=== PATIENT | female | born 1965 | race Caucasian/White ===

== ENCOUNTER 2017-10-15 10:26 | Day surgery (SDC) | payer BC ==
--- NOTE | 2017-10-15 03:35 | HP ---
CC: Marilee Lambert MD HISTORY AND PHYSICAL: DATE OF PLANNED ADMISSION AND SURGERY: 10/15/17 HISTORY OF PRESENT ILLNESS: Ms. Martinez is a 52-year-old white female who is admitted with a left renal calculus for cystoscopy and placement of left ureteral stent. Ms. Martinez' symptoms started about 2 weeks ago when she developed mild left flank pain. There were episodes of gross hematuria. The pain has been intermittent, and severe at times, requiring ibuprofen for partial pain control. She had a work-up with a renal ultrasound and a KUB, which both showed a 1 cm partially obstructing calculus at the level of the ureteropelvic junction. There were also 2 smaller left renal calculi measuring about 5 mm each. Because of the intermittent episodes of pain and size of the stone, the patient is admitted for placement of left ureteral stent in preparation for definitive treatment of the stone with shock wave lithotripsy. PAST MEDICAL HISTORY AND SYSTEM REVIEW: She is very healthy. She has environmental allergies for which she takes Singulair and Zyrtec as needed. She is otherwise in excellent health. She reports having intolerance to hydrocodone. She gives past history of urinary tract infections. PHYSICAL EXAMINATION GENERAL: Pleasant and healthy looking white female, who is in mild to moderate pain. VITAL SIGNS: Blood pressure 120/80, pulse of 70, temperature 98. LUNGS: Clear. HEART: Regular and rhythmic. No murmurs. ABDOMEN: Soft. No masses. No tenderness. There is mild left CVA tenderness. LABORATORY DATA: Urinalysis in the office showed +3 blood, +1 protein, negative esterase, and nitrite. IMPRESSION: Recurrent episodes of left flank pain and gross hematuria secondary to a 1 cm calculus at the left ureteropelvic junction causing intermittent obstruction. PLAN: Cystoscopy and placement of left ureteral stent. The patient will be admitted at a later date for shock wave lithotripsy and removal of the left ureteral stent. I discussed the above plans in detail with the patient and all of her questions were answered. [id number]/[facility] #: [id number] [facility]
[~2017-10-15 10:26] MED LIST: Buffered Lidocaine 0.9% SYRIN* 5 ML/SYR SYRINGE INTRADERM ONE; Buffered Lidocaine 0.9% SYRIN* 5 ML/SYR SYRINGE ONE; Famotidine TAB* 20 MG PO ONE; Ondansetron INJ* 2 MG/ML VIAL ONE; cefTRIAXone(*) 1 GM ADVAN/BAG ONE
[2017-10-15] MEDS ORDERED: Scopolamine 1.5 mg* PATCH TRANSDERM PRN (10:36)
[2017-10-15] MEDS ORDERED: Naloxone* 0.4 MG/ML 1 ML VIAL IV PRN (10:36)
[2017-10-15] MEDS ORDERED: oxyCODONE/Acetamin 5/325 MG* TAB PO PRN (10:36)
[2017-10-15] MEDS ORDERED: fentaNYL* 50 MCG/ML 2 ML VIAL (100 MCG VIAL) IV PRN (10:36)
[2017-10-15] MEDS ORDERED: PROCHLORPERAZINE INJ 5 MG/ML 2 ML VIAL IV PRN (10:36)
[2017-10-15] MEDS ORDERED: DiMENhydriNATE IV* 50 MG/ML VIAL IV PUSH PRN (10:36)
[2017-10-15] MEDS ORDERED: Morphine INJ* 2 MG/ML 1 ML CARPUJECT IV PRN (10:36)
[2017-10-15] MEDS ORDERED: Morphine INJ* 10 MG/ML 1 ML CARPUJECT ONE (11:36)
[2017-10-15] MEDS ORDERED: Famotidine TAB* 20 MG ONE (11:50)
[2017-10-15] MEDS ORDERED: fentaNYL* 50 MCG/ML 2 ML VIAL (100 MCG VIAL) ONE (12:13)
[2017-10-15] MEDS ORDERED: Midazolam* 1 MG/ML 5 ML VIAL (5 MG) ONE (12:13)
[2017-10-15] MEDS ORDERED: Dexamethasone IV* 4 MG/ML 1 ML (4 MG) ONE (12:40)
[2017-10-15] MEDS ORDERED: Propofol* 10 MG/ML 20 ML BTL IV PUSH ONE (12:40)
[2017-10-15] MEDS ORDERED: Lidocaine 2% PF * 5 ML VIAL ONE (13:17)
--- NOTE | 2017-10-15 13:42 | RAD ---
INDICATION: Left ureteral calculus, stent placement. COMPARISON: Comparison is made with a prior KUB study from October 10, 2017. TECHNIQUE: 6 seconds of intermittent fluoroscopic guidance were provided and 3 spot films of the abdomen were centered on the left side. FINDINGS: There is partial opacification of the left renal collecting system. Subsequently there is placement of a double-J stent catheter on the left side. IMPRESSION: INTRAOPERATIVE CONTROL FILMS. CPT II Codes: G9500
[2017-10-15 14:04] VITALS: BP 142/113
--- NOTE | 2017-10-15 23:17 | OP ---
CC: Dr. Marilee Lambert OPERATIVE REPORT: DATE OF OPERATION: 10/15/17 DATE OF : 69 SURGEON: Jus Rice MD ANESTHESIOLOGIST: Dr. Delmar Torres. ANESTHESIA: General. PRE-OP DIAGNOSIS: Left UPJ calculus (1 cm) Recurrent Lt renal coloc due to above. POST-OP DIAGNOSIS: Distal left ureteral calculus (1 cm). OPERATIVE PROCEDURE: 1. Cystoscopy. 2. Left ureteroscopy, laser lithotripsy and extraction of left ureteral calculus. 3. Left retrograde pyelography and placement of left ureteral stent (6-East Timorese). INDICATION FOR PROCEDURE: Ms. Martinez is a 52-year-old lady, who started having recurrent episodes of left flank pain and gross hematuria about 1 week ago. Her workup with KUB, and renal ultrasound yesterday, showed 1 cm radio- opaque calculus at the left ureteropelvic junction associated with mild to moderate hydronephrosis. Over last 24 h patient has been having recurrent episodes of acute Lt flank pain. Because of the recurrent episodes of pain, the size of the calculus and its location, the patient is brought in for left ureteral stent placement in preparation for definitive treatment of the stone. PATHOLOGY: At fluoroscopy, the calculus was not seen in the area of the left kidney, but was seen overlying the bony pelvis at the junction of the middle and distal thirds of the ureter about 6 cm above the ureterovesical junction. At cystoscopy, the bladder mucosa looked normal. There were no suspicious bladder lesions seen. The ureteral orifices looked normal. At left ureteroscopy, a 1 cm calculus was noted about 5 or 6 cm above the level of the ureterovesical junction. The calculus was light grayish in color and consistent in appearance with a calcium phosphate stone. It fragmented easily with the laser. Left retrograde pyelography showed moderate dilatation of the ureter and minimal dilatation of the collecting system. DESCRIPTION OF PROCEDURE: After successful general anesthesia, the patient was placed in the lithotomy position and was prepped and draped for a cystoscopy. Cystoscopy was performed. The bladder was carefully inspected and the above findings were noted. A flexible-tip guidewire was then introduced into the left orifice and positioned in the area of the renal pelvis. At fluoroscopy, the calculus could not be seen in the area of the left kidney or the proximal ureter and was noted overlying the lower part of the bony pelvis adjacent to the guidewire indicating that the stone had dropped into the distal ureter since she was seen in the office yesterday afternoon. Decision was made to proceed with ureteroscopy. A size 6.5 semi-rigid ureteroscope was then passed inside the bladder. A flexible tipped basket was then introduced through the port of the ureteroscope and the flexible tip was introduced into the left ureter alongside the guidewire. That allowed the atraumatic introduction of the ureteroscope inside the ureter. The calculus was visualized. The basket was passed beyond the stone and was deployed to prevent proximal migration of the stone. A size 550 micron laser fiber was then introduced through the other port of the ureteroscope and the stone was fragmented into multiple pieces using laser under direct vision. The stone fragments were then extracted using the basket. After several passes, all the stone fragments were removed. Final inspection showed intact ureteral wall without any damage or perforation. Retrograde pyelography was then performed. A size 6-[place]orese stent was then placed with the proximal end coiling in the renal pelvis and the distal end coiling inside the bladder. There was good drainage of contrast from both kidney and no extravasation. Patient the procedure well, and left the OR in good condition. The plan is to leave the stent in place for 7 to 10 days. It will be removed in the office under local anesthesia. [id number]/[facility] #: [id number] [facility]ERE[facility]
[2017-10-18] MEDS ORDERED: Scopolamine PATCH Remove* 1 NOTE MISC PATCH OFF ONE (10:38)
== END 2017-10-15 14:37 | disposition home or self-care (01) ==
LOC: OR 10:26
PROVIDERS: ATTEND Urology
DX: N13.2 Hydronephrosis with renal and ureteral calculous obstruction (principal); R31.0 Gross hematuria
CPT/HCPCS: 74420; 81025; 82365; 88300; A9270-GY; C1876; J0696; J1100; J2250; J2270; J2704; J3010

== ENCOUNTER 2018-06-22 22:15 | Emergency (ER) | payer BC ==
--- OUTSIDE RECORDS SUMMARY | 2018-06-22 22:25 | XMS REPORT | Continuity of Care Document ---
:1965 External Reference #:[id number] Author Name Rach Blandon Care Team Providers Name Role Phone Marilee Pineda MD Primary Care Physician Unavailable Payers Type Date Identification Numbers Payment Provider Subscriber Policy Number: [id number] [employer] Micaela Martinez PayID: [id number] [address] [address] [place] [address] Advance Directives Description No Information Available Problems Description No Information Family History Date Family Member(s) Problem(s) Comments Father Parkinson's Disease Onset: (age 40 Years) Mother Breast Cancer Mother due to Breast Cancer () Social History Type Date Description Comments Sex Unknown Marital Status Single 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 With 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 ETOH Use Occasionally consumes alcohol Tobacco Use Start: Unknown Patient has never smoked Recreational Drug Use Denies Drug Use Smoking Status Reviewed: 06/15/18 Patient has never smoked Exercise Type/Frequency Exercises regularly Allergies, Adverse Reactions, Alerts Date Description Reaction Status Severity Comments 06/15/2018 Hydrocodone Active rash Medications Medication Date Status Form Strength Qnty SIG Indications Ordering Provider Bupropion HCL ER 00/ Active Tablets ER 150mg 1 by mouth Unknown (XL) 0000 24HR every day Levocetirizine 00// Active Tablets 5mg 1 by mouth Unknown Dihydrochloride 0000 every day Montelukast 00/00/ Active Tablets 10mg 1 by mouth Unknown Sodium 0000 every day Xopenex HFA 00// Active Aerosol 45mcg/Act 2 puffs Unknown 0000 inhaled every 4-6h as needed for shortness of breath. Vitamin D High 00// Active Capsules 1 by mouth Unknown Potency 0000 every day Evening [place] / Active Capsules 500mg 1 capsule Unknown Oil 0000 daily Immunizations Description No Information Available Vital Signs Date Vital Result Comment 06/15/2018 10:42am Height 60 inches 5'0" Weight 135.00 lb Heart Rate 66 /min BP Systolic Sitting 118 mmHg BP Diastolic Sitting 78 mmHg Respiratory Rate 16 /min Body Temperature 98.8 F BMI (Body Mass Index) 26.4 kg/m2 Results Description No Information Available Procedures Description No Information Available Encounters Description No Information Available Plan of Treatment No Information Available
--- OUTSIDE RECORDS SUMMARY | 2018-06-22 22:25 | XMS REPORT | Continuity of Care Document ---
:1965 Author Organization [facility] Address [address] [place] [address], [place] [id number] Phone Care Team Providers Name Role Phone Louisa Shields NP Unavailable Unavailable Allergies, Adverse Reactions, Alerts Substance Reaction Status hydrocodone Active Medications Medication Instructions Dosage Effective Dates Status Comments (start - stop) fluconazole 150 mg 1 po x 1 for - Active tablet fungal infection (#1) Mirena 20 mcg/24 Insert IU - Active hr (5 years) intrauterine device PENICILLIN V Not Available - Active POTASSIUM (unknown strength) XOPENEX (unknown Not Available - Active strength) SINGULAIR (unknown Not Available - Active strength) WELLBUTRIN take 1 tablet by Not Available - Active (unknown strength) oral route 2 times every day ZYRTEC (unknown Not Available - Active strength) ESTRACE (unknown Not Available - No Longer strength) Active Problems Condition Effective Dates (start - Clinical Status Comments stop) Body mass index (BMI) 25.0-25.9, adult Candidiasis of vulva and vagina Unspecified menopausal and perimenopausal disorder 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 Other Wearing Apparel Shaker.Svc. STI FLUCONAZOLE 150 MG #1 Results Test Name Date and Time Measure Units Reference Range Abnormal Flag Status Comments Panel Description: Wet Mount Final Wet Mount 19:07:35 Hyphae/Lavonne: yesBudding yeast: Final yesTrich: noClue cells: noWBCs: noAmine/Whiff test: negativepH: 4.0 Advance Directives Directive Yes / No Effective Date File Name No information Encounters Encounter Practice Location Reason(s) Diagnoses Date Provider Providers Description For Visit Copied on Encounter OFFICE/OUTPA [facility] Well Body mass index Alysno Referring TIENT VISIT, [facility] [place] Person (BMI) 25.0-25.9, 7-201 [place]. 620 Provider: [facility] Visit adultCandidiasis [address], [place] (chief of vulva and [place], [place], Aly[facility], 620 complaint) vaginaUnspecifie [id number], [place]. [address] menopausal and tel:[phone], [address], [place], perimenopausal [address] [place], [place], [place], [address]. [id number], tel:[phone] [place] [phone] tel:[phone] [facility] Encntr for tool analyst Apr-0 [facility] [place] exam (general) 5-201 [place]. [address] (routine) w/o [address], [place] abn [place], [place], [facility], [address] findingsEncntr [id number] screen for tel:[phone] St, [place], [place] [address] [place], sexl mode of [id number], transmiss [place] tel:[phone] [facility] Encounter for Mar-2 [facility] [place] test, 8-201 Priscila. [address] result [address], [place] negativeEncounte [place], [place], [facility], [address] [place] [id number]. [address] intrauterine tel:[phone] St, [place], contraceptive [address] [place], deviceEncounter [id number], for insertion of [place] intrauterine tel:[phone] contraceptive [phone] deviceAcute vaginitis [facility] [place] [address]. [address] [facility] [address], [place], [place], [facility], [address] [id number] tel:+[phone] , [place], [address] [place], [id number], [place] tel:[phone] [facility] [place] [facility] [address]. [address] [facility] [address], [place], [place], [facility], [address] [address] tel:+[phone] , [place], [address] [place], [id number], [place] tel:[phone] Family History Family Member Diagnosis Age At Onset Father Heart disease Mother Blood clots, legs 1st degree relative No hx of coronary heart disease (female <65, male <55) Mother Cancer, breast Maternal grandfather Myocardial infarction Mother Thyroid disorder Paternal grandfather Myocardial infarction 1st degree relative Cancer of breast, colon, endometrium or ovary 1st degree relative Venous thromboembolism Maternal grandmother Stroke Immunizations Vaccine Date Status Comments Hep A and Hep B administered Note: PER HEALTH HX 07/2011 ; Source: Source Unspecified measles, mumps and rubella administered Note: PER HEALTH HX 2011 ; virus vaccine Source: Source Unspecified Payers Payer name Insurance type Covered republican ID Authorization(s) [facility] [id number] Social History Type Description Quantity Date Captured Comments Alcohol Use Details Unknown Caffeine Use Details Unknown Tobacco Use Status Never smoked tobacco Smoking Status Never smoker Non-Smoking Tobacco : No Details Available : No Details Available 2018 Use Details Sex Female Vital Signs Date / Height Weight BMI Pulse Blood Temperature Respiratory Body Head BMI Pulse Inhaled Time: Rate Pressure Rate Surface Circumference percentile Ox Ox Area 61.00 136.40 25.7 102/80 -2019 in lbs 7 mm[Hg] 6:01 kg/m PM eter (2) Chief Complaint And Reason For Visit Most recent encounter only, dated '06/19/2018 17:40'. Well Person Visit ( chief complaint) Reason For Referral Reason For Referral No information Plan Of Treatment Date Type Action Status No information History Of Present Illness Encounter Date Complaint History Of Present Illness No information Functional Status Date Functional Assessment No information Medications Administered Medication Instructions Dosage Effective Dates (start - stop) Status Comments No information Instructions Date Instruction Additional Information No information Assessments Type Assessment Date assessment Body mass index (BMI) 25.0-25.9, adult assessment Candidiasis of vulva and vagina assessment Unspecified menopausal and perimenopausal disorder Goals Health Concern Goal Type Priority Status Date No information Medical Equipment Description Device [place] Device Identifier Effective Dates (start - stop ) Status No information Mental Status Date Cognitive Assessment Normal Orientation Health Concerns Observation Date No information Concern Status Date No information
[2018-06-22] MEDS ORDERED: Morphine VIAL* 4 MG/ML VIAL (1 ml vial) IV ONE (22:30)
[2018-06-22] MEDS ORDERED: Ondansetron INJ* 2 MG/ML VIAL IV ONE (22:30)
[2018-06-22] MEDS ORDERED: NS 0.9% 1000 ML* 1,000 ML IV ONE ×2 (22:30→23:22)
[2018-06-22] MEDS ORDERED: Ketorolac INJ* 30 MG/ML 1 ML VIAL IV PUSH ONE (22:30)
--- NOTE | 2018-06-22 22:37 | ED ---
GI/ HPI - HPI Summary HPI Summary: 52-year-old female presents abdominal pain today. She states it radiates to right flank. She states she has history kidney stones that it feels similar. She has history of hyperparathyroidism and hypercalcemia. She admits to nausea and vomiting. Denies any fevers. She denies any urinary symptoms. She states she has not had a bowel movement in a couple days. She denies any diarrhea. She tried some hyromorphine for her pain with no relief. no chest pain or SOB. - History of Current Complaint Chief Complaint: EDFlankPain Time Seen by Provider: 06/22/18 22:26 Stated Complaint: ABD PAIN Hx Last Menstrual Period: DOESN'T GET-IUD Pain Intensity: 9 - Allergy/Home Medications Allergies/Adverse Reactions: Allergies Allergy/AdvReac Type Severity Reaction Status Date / Time hydrocodone Allergy Severe Rash And Verified 06/23/18 01:32 Itching PMH/Surg Hx/FS Hx/Imm Hx Endocrine/Hematology History: Denies: Hx Anticoagulant Therapy Respiratory History: Reports: Hx Asthma - Surgical History Surgery Procedure, Year, and Place: RIGHT BREAST LUMPECTOMY, BREAST REDUCTION SURGERY Infectious Disease History: No Infectious Disease History: Denies: Traveled Outside the [place] in Last 30 Days - Family History Known Family History: Positive: Hypertension - Social History Alcohol Use: Occasionally Substance Use Type: Reports: None Smoking Status (MU): Never Smoked Tobacco Review of Systems Negative: Fever Negative: Chest Pain Negative: Shortness Of Breath Positive: Abdominal Pain, Vomiting, Nausea. Negative: Diarrhea Positive: flank pain. Negative: dysuria All Other Systems Reviewed And Are Negative: Yes Physical Exam Triage Information Reviewed: Yes Vital Signs On Initial Exam: Initial Vitals Temp Pulse Resp BP Pulse Ox 98.2 F 81 18 125/63 99 06/22/18 22:17 06/22/18 22:17 06/22/18 22:17 06/22/18 22:17 06/22/18 22:17 Vital Signs Reviewed: Yes Appearance: Positive: Well-Appearing Skin: Positive: Warm, Dry Head/Face: Positive: Normal Head/Face Inspection Eyes: Positive: Normal, Conjunctiva Clear ENT: Positive: Pharynx normal Respiratory/Lung Sounds: Positive: Clear to Auscultation, Breath Sounds Present Cardiovascular: Positive: Normal, RRR Abdomen Description: Positive: Soft, CVA Tenderness (R), Other: - tenderness right side abd Bowel Sounds: Positive: Present Musculoskeletal: Positive: Normal Neurological: Positive: Normal Psychiatric: Positive: Normal Diagnostics - Vital Signs Vital Signs Temp Pulse Resp BP Pulse Ox 06/22/18 22:17 98.2 F 81 18 125/63 99 - Laboratory Result Diagrams: 06/22/18 22:53 06/22/18 22:53 Lab Statement: Any lab studies that have been ordered have been reviewed, and results considered in the medical decision making process. - CT abd CT Interpretation Completed By: Radiologist Summary of CT Findings: IMPRESSION: 1. Distal right ureteral calculus approximately 5 mm above the right UVJ which. measures 3 x 5 x 7 mm. There is secondary obstructive uropathy of the right. upper tract. 2. Nonobstructing bilateral renal calculi. 3. IUD in uterus. Re-Evaluation - Re-Evaluation First Eval Re-Evaluation Time: 23:54 Change: Improved Comment: pain improved Second Eval Re-Evaluation Time: 01:42 Change: Unchanged Comment: pain is returning. discussed antibiotics GIGU Course/Dx - Course Course Of Treatment: 52-year-old female presents abdominal pain today. She states it radiates to right flank. She states she has history kidney stones that it feels similar. She has history of hyperparathyroidism and hypercalcemia. She admits to nausea and vomiting. Denies any fevers. She denies any urinary symptoms. She states she has not had a bowel movement in a couple days. She denies any diarrhea. She tried some hydromorphine for her pain with no relief. no chest pain or SOB. on exam has tenderness right side abd and CVA. CT shows 7mm stone. urine may be infected vs contaminant. discussed with dr roca said give dose of rocephin and gentamicin. patient believed took percocet before without reaction so will write for such. will place on cipro. patient understand and agrees with plan. - Diagnoses Differential Diagnoses - Female: Pyelonephritis, Urinary Tract Infection, Ureteral Calculi Provider Diagnoses: Ureteral calculi Discharge - Sign-Out/Discharge Documenting (check all that apply): Patient Departure - Discharge Plan Condition: Good Disposition: HOME Prescriptions: Ciprofloxacin TAB* [Cipro 500 MG TAB*] 500 mg PO BID #10 tab Ondansetron ODT TAB* [Zofran 4 MG Odt TAB*] 4 mg PO Q6H PRN #6 tab.odt PRN Reason: Nausea oxyCODONE/Acetamin 5/325 MG* [Percocet 5/325 TAB*] 1 tab PO Q6H PRN #16 tab MDD 4 PRN Reason: Pain Tamsulosin CAP* [Flomax CAP*] 0.4 mg PO DAILY #7 cap Patient Education Materials: Ureteral Stones (ED) Referrals: Marilee Lambert MD [Primary Care Provider] - Jus Rice MD [Medical Doctor] - Additional Instructions: Take ibuprofen every 6 hours and percocet as needed every 6 hours, if have reaction stop medication and return take cipro twice a day for 5 days Take Zofran every 6 hours for nausea as needed Take Flomax daily starting tomorrow, first dose given in ED until stone expelled , make sure stand up slowly Follow up with urology, call office tomorrow for appointment Strain urine until collect stone Return to ED if unable to manage pain at home, develop fever, or any new or worsening symptoms - Billing Disposition and Condition Condition: GOOD Disposition: Home
[2018-06-22 23:01] LABS: ABS Basophils 0 10^3/ul (0-0.2); ABS Eosinophils 0.1 10^3/ul (0-0.6); ABS Lymphocytes 1.7 10^3/ul (1.0-4.8); ABS Monocytes 0.8 10^3/ul (0-0.8); ABS Neutrophils 8.4 10^3/ul (1.5-7.7); ABS Nucleated RBC 0 10^3/ul; Hematocrit 41 % (35-47); Hemoglobin 13.8 g/dl (12.0-16.0); Lymphocyte % 15.4 %; Mean Corpuscular HGB Conc 33 g/dl (31-36); Mean Corpuscular Hemoglobin 31 pg (27-31); Mean Corpuscular Volume 92 fL (80-97); Mean Platelet Volume 9.1 fL (7.4-10.4); Nucleated Red Blood Cells % 0; Platelet Count 237 10^3/ul (150-450); Red Blood Count 4.48 10^6/ul (4.00-5.40); Red Cell Distribution Width 12 % (10.5-15)
[2018-06-22 23:19] LABS: ALT 37 U/L (7-52); AST 65 U/L (13-39); Albumin 4.4 g/dL (3.2-5.2); Albumin/Globulin Ratio 1.5 (1-3); Alkaline Phosphatase 46 U/L (34-104); Anion Gap 13 mmol/L (2-11); BUN/Creatinine Ratio 13.3 (8-20); Blood Urea Nitrogen 11 mg/dL (6-24); C Reactive Protein 1.84 mg/L (<8.01); CO2 Carbon Dioxide 20 mmol/L (22-32); Calcium 12.6 mg/dL (8.6-10.3); Chloride 103 mmol/L (101-111); EGFR Non-African American 72.8 (>60); Globulin 2.9 g/dL (2-4); Glucose 103 mg/dL (70-100); Potassium 3.9 mmol/L (3.5-5.0); Sodium 136 mmol/L (135-145); Total Protein 7.3 g/dL (6.4-8.9)
[2018-06-22 23:26] LABS: HCG Pregnancy < 0.60 mIU/mL
[2018-06-23 00:51] LABS: Urine Appearance Cloudy; Urine Bacteria 1+ (Absent); Urine Bilirubin Negative (Negative); Urine Blood 2+ (Negative); Urine Color Yellow; Urine Glucose Negative (Negative); Urine Ketones Trace (Negative); Urine Nitrite Negative (Negative); Urine Protein Negative (Negative); Urine Red Blood Cell 3+(>10/hpf) (Absent); Urine Specific Gravity 1.011 (1.010-1.030); Urine Urobilinogen Negative (Negative); Urine White Blood Cell 1+(6-10/hpf) (Absent)
[2018-06-23] MEDS ORDERED: cefTRIAXone(*) 1 GM in NS 0.9% 50 ML* 50 ML IVPB ONE (01:07)
[2018-06-23] MEDS ORDERED: Gentamicin ADULT (*) 250 MG in NS 0.9% 100 ML* 100 ML IVPB ONE (01:12)
[2018-06-23] MEDS ORDERED: Morphine VIAL* 4 MG/ML VIAL (1 ml vial) IV ONE (01:16)
[2018-06-23] MEDS ORDERED: Tamsulosin CAP* 0.4 MG PO ONE (02:06)
[2018-06-23 03:38] VITALS: BP 125/71
== END 2018-06-23 03:38 | disposition home or self-care (01) ==
LOC: ED 22:15
DX: N20.2 Calculus of kidney with calculus of ureter (principal); Z87.442 Personal history of urinary calculi; Z97.5 Presence of (intrauterine) contraceptive device; Z88.5 Allergy status to narcotic agent
CPT/HCPCS: 36415; 74176; 80053; 81003; 81015; 83605; 83690; 84702; 85025; 86140; 87086; 96361; 96365; 96375; 96376; 99284; J0696; J1580; J1885; J2270; J2405

== ENCOUNTER 2018-06-30 07:34 | Day surgery (SDC) | payer BC ==
--- NOTE | 2018-06-29 08:33 | HP ---
CC: Dr. Marilee Lambert; Dr. Donavon Lozano; Dr. Salud Wiggins * HISTORY AND PHYSICAL: DATE OF PLANNED ADMISSION AND SURGERY: 06/30/18 HISTORY OF PRESENT ILLNESS: Ms. Martinez is a 52-year-old white female who is admitted with a distal right ureteral calculus for cystoscopy, right ureteroscopy, laser lithotripsy, and right ureteral stent insertion. Ms. Martinez is a known stone former and had required a left ureteroscopy and laser lithotripsy for a distal left ureteral calculus in October 2017. At that time , she had a metabolic stone workup and was noted to have hypercalcemia, hypercalciuria, and elevation of the parathyroid hormone. The patient was referred to Dr. Lozano who confirmed the diagnosis of hyperparathyroidism and referred her to Dr. Salud Wiggins. On the thyroid ultrasound, there was noted a possible nodule in her thyroid and the patient is scheduled to undergo a fine needle aspiration before undergoing excision of the parathyroid adenoma by Dr. Wiggins. The patient presented to the emergency room 1 week ago with symptoms of right renal colic. She had a noncontrast CT of the abdomen and pelvis, which showed a 7 x 4 mm calculus in the distal right ureter associated with mild right hydronephrosis. She was managed conservatively and was placed on Dilaudid and tamsulosin. She continued to have on and off episodes of Rt flank pain requiring the use of Dilaudid and ibuprofen for pain control. She was reevaluated in my office and had a full bladder ultrasound which showed the calculus to be still in the same location in the distal right ureter. Because of the above history, the size of the calculus, and the duration of her symptoms with associated pain, the patient is admitted for endoscopic stone extraction. PAST MEDICAL HISTORY AND SYSTEM REVIEW: As described above. MEDICATIONS: The patient has history of asthma and is maintained on Singulair and on Zyrtec. She is on bupropion for anxiety. ALLERGIES: She reports having intolerance or allergy to HYDROCODONE. IRON MINER BLASTING HISTORY: Negative. She has not had any pelvic surgeries. She had 3 vaginal deliveries. FAMILY HISTORY: Negative for renal diseases or calculi. SOCIAL HISTORY: She is a nonsmoker. PHYSICAL EXAMINATION GENERAL: She is a pleasant white female who is in mild discomfort. VITAL SIGNS: Blood pressure 110/70, pulse of 60. LUNGS: Clear. HEART: Regular and rhythmic. No murmurs. ABDOMEN: Soft. No masses, no tenderness and there is mild right CVA tenderness. IMPRESSION: 1. On and off episodes of right renal colic secondary to a 7 x 4 mm distal right ureteral calculus. 2. Hyperparathyroidism. 3. History of anxiety. 4. History of asthma. PLAN: Plan is for right ureteroscopy, laser lithotripsy, and right ureteral stent insertion. I discussed the above plans in detail with the patient. The patient is supposed to strain her urine until the surgery to confirm the stone has not passed preoperatively. All her questions were answered. [id number]/[facility] #: [id number] [facility]
[~2018-06-30 07:34] MED LIST changes: -Buffered Lidocaine 0.9% SYRIN* 5 ML/SYR SYRINGE INTRADERM ONE; -Buffered Lidocaine 0.9% SYRIN* 5 ML/SYR SYRINGE ONE; +Buffered Lidocaine 1% SYRIN* 1 ML/SYRINGE INTRADERM ONE; -Famotidine TAB* 20 MG PO ONE; +Lactated Ringers 1000 ML Bag* 1,000 ML IV SCH; -Ondansetron INJ* 2 MG/ML VIAL ONE; +Sodium Citrate/Citric Acid* 15 ML UDC PO ONE; -cefTRIAXone(*) 1 GM ADVAN/BAG ONE
[2018-06-30] MEDS ORDERED: Sodium Citrate/Citric Acid* 15 ML UDC ONE (08:01)
[2018-06-30] MEDS ORDERED: cefTRIAXone(*) 1 GM ADVAN/BAG ONE (08:01)
[2018-06-30] MEDS ORDERED: Iohexol 180 (CONTRAST) 10 ML SDV IV ONE (10:05)
[2018-06-30] MEDS ORDERED: Midazolam* 1 MG/ML 2 ML VIAL (2 MG) ONE (10:12)
[2018-06-30] MEDS ORDERED: fentaNYL* 50 MCG/ML 2 ML VIAL (100 MCG VIAL) ONE ×2 (10:12→11:45)
[2018-06-30] MEDS ORDERED: Propofol* 10 MG/ML 20 ML BTL ONE (10:13)
[2018-06-30] MEDS ORDERED: Lidocaine 2% PF * 5 ML VIAL ONE (10:13)
[2018-06-30] MEDS ORDERED: Naloxone* 0.4 MG/ML 1 ML VIAL IV PRN (10:30)
[2018-06-30] MEDS ORDERED: Ondansetron INJ* 2 MG/ML VIAL IV PRN (10:30)
[2018-06-30] MEDS: fentaNYL* 50 MCG/ML 2 ML VIAL (100 MCG VIAL) IV PRN ×3 (11:46→12:33)
[2018-06-30 12:32] VITALS: BP 115/70
--- NOTE | 2018-06-30 21:00 | OP ---
CC: Dr. Donavon Lozano; Dr. Marilee Lambert OPERATIVE REPORT: DATE OF OPERATION: 06/30/18 DATE OF : 69 SURGEON: Jus Rice MD ANESTHESIOLOGIST: Dr. Casper Travis. ANESTHESIA: General. PRE-OP DIAGNOSIS: Distal right ureteral calculus (7 mm). POST-OP DIAGNOSIS: Distal right ureteral calculus (7 mm). OPERATIVE PROCEDURE: Cystoscopy, Right ureteroscopy, laser lithotripsy of right ureteral calculus. Right retrograde pyelography, and placement of right ureteral stent (6-S[place] Arabian). INDICATION FOR PROCEDURE: Ms. Martinez is a 52-year-old white female who is a known stone former, and who, on metabolic stone work-up, was recently diagnosed with hyperparathyroidism, and being worked up in preparation for neck exploration. She presented to the emergency room 1 week ago with symptoms of right renal colic and was noted to have a 7-mm calculus in the distal right ureter. The patient was managed conservatively; however, she continued to have on and off episodes of right flank pain requiring the use of narcotics. Because of the above history and the size of the stone, the patient is admitted for the above procedure. PATHOLOGY AT CYSTOSCOPY: The bladder mucosa looked normal. There were no suspicious bladder lesions seen. The ureteral orifices looked normal. Upon right ureteroscopy, a grayish calculus that had the gross appearance of a calcium oxalate stone was noted impacted in the distal ureter. The calculus measured about 7 to 8 mm. Right retrograde pyelography showed moderate right hydroureteronephrosis with some tortuosity in the proximal ureter. DESCRIPTION OF PROCEDURE: After successful general anesthesia, the patient was placed in the lithotomy position and was prepped and draped for a cystoscopy. Cystoscopy was then performed. The bladder was carefully inspected and the above findings were noted. A flexible tip hybrid guidewire was then introduced into the right orifice and positioned in the area of the renal pelvis by fluoroscopy guidance. A size 6.5 semi-rigid tapered ureteroscope was then introduced inside the bladder. A flexible tip basket was introduced through the port of the ureteroscope and its flexible tip was introduced inside the right orifice alongside the guidewire. That allowed the atraumatic introduction of the ureteroscope into the ureter. The calculus was identified. The basket was deployed just proximal to the calculus to avoid its proximal migration. A 550 micron laser fiber was then introduced through the other port of the ureteroscope and the stone was broken into several fragments using laser. The larger fragment was then extracted with the basket and sent for stone analysis. The smaller stone fragments washed inside inside the bladder. Final ureteroscopy showed minimal trauma to the ureteral wall and no residual calculi fragments, and the ureteroscope removed. The cystoscope was then introduced inside the bladder over the guidewire. Retrograde pyelography was performed demonstrating the moderate right hydroureteronephrosis. A size 6-S[place] stent was then placed with the proximal end coiling in the renal pelvis and the distal end coiling inside the bladder. The patient tolerated the procedure well and left the operating room in good condition. The plan is to leave the stent in place for 1 week, it will be removed in the office under local anesthesia. [id number]/[facility] #: [id number] SERENA
== END 2018-06-30 13:27 | disposition home or self-care (01) ==
LOC: OR 07:34
PROVIDERS: ATTEND Urology
DX: N20.1 Calculus of ureter (principal); E21.3 Hyperparathyroidism, unspecified; Z87.442 Personal history of urinary calculi; J45.909 Unspecified asthma, uncomplicated; F41.9 Anxiety disorder, unspecified
CPT/HCPCS: 74420; 81025; 82365; 88300; A9270-GY; C1876; J0696; J2250; J2704; J3010

== ENCOUNTER 2018-07-21 05:41 | Day surgery (SDC) | payer MEDICAID ==
--- NOTE | 2018-07-11 16:10 | HP ---
CC: Dr. Marilee Lambert; Dr. Donavon Lozano * PREOPERATIVE HISTORY AND PHYSICAL: DATE OF ADMISSION/SURGERY: 07/21/18 This patient is scheduled for parathyroidectomy by Dr. Wiggins on 07/21/18. DATE OF PREOPERATIVE HISTORY AND PHYSICAL EXAMINATION: 07/11/18. ATTENDING SURGEON: Dr. Salud Wiggins * (dictated by Cookie Rebolledo NP). CHIEF COMPLAINT: Primary hyperparathyroidism. HISTORY OF PRESENT ILLNESS: The patient is a 52-year-old female with a history of kidney stones with a recent diagnosis of primary hyperparathyroidism. The patient states that she has had multiple episodes of kidney stones starting in 2016. When she had an episode of kidney stones in the spring, she underwent lithotripsy with Dr. Rice; a 24-hour urinary calcium was ordered and noted to be elevated, so she was referred to Dr. Lozano for further workup. She was found to have elevated calcium with an inappropriately high PTH confirming the diagnosis of primary hyperparathyroidism. The patient noted that for many months she had felt nauseated and experienced fatigue. She also has bone pain in her feet and legs. As mentioned, she has had multiple episodes of kidney stones with the most recent being 06/30/18 when she underwent ureteroscopy, lithotripsy and placement of a right ureteral stent by Dr. Rice. The right stent was removed, 07/07/18. The patient has never broken any bones. She reports about a 10-pound weight gain since March 2018. Her mother had a history of thyroid goiter and 2 maternal relatives, a first cousin and an aunt also have had some type of thyroid conditions. She has never had radiation exposure or thyroid surgery. She underwent fine needle aspiration of left and right thyroid nodules and both pathologies were benign; she had a sestamibi scan and there is a solid nodule most consistent with parathyroid adenoma. Dr. Wiggins has examined the patient and reviewed the findings with her and has recommended parathyroidectomy as a same-day surgery procedure. She discussed the nature of the surgical procedure, the rationale for the procedure , the relevant risks and benefits and today, I reviewed the expected postoperative care and recovery. The patient has had a chance to ask questions and stated that she understands the information and is satisfied with the answers given to her questions. She will sign surgical consent on the day of surgery. PAST MEDICAL HISTORY: Hyperparathyroidism, goiter, renal calculi, GERD, exercise- induced asthma, anxiety, hypercalcemia and hypercalciuria. PAST SURGICAL HISTORY: Multiple ureteroscopies with lithotripsies with the most recent 06/30/[address] Rice; a right stent was placed at that time and then the right stent was removed 07/07/18. She had bilateral breast reduction about 12 years ago. MEDICATIONS: 1. Bupropion ER 150 mg by mouth daily. 2. Levocetirizine 5 mg p.o. daily. 3. Montelukast 10 mg p.o. daily. 4. Xopenex 45 mcg per actuation 2 puffs every 4 to 6 hours as needed. 5. Vitamin D high potency p.o. daily. 6. Evening primrose oil p.o. daily. 7. She has a Mirena IUD. ALLERGIES: HYDROCODONE and OXYCODONE both have caused rash and itching, KIWI has caused swelling. FAMILY HISTORY: Mother from breast cancer in her 40s. She had a history of thyroid goiter. Father with a history of Parkinson's. No known anesthesia complications or bleeding tendencies or clotting disorders. Several maternal relatives have also had thyroid conditions. SOCIAL HISTORY: She lives with her boyfriend. She has 3 children ages 19, 26 and 29. She has never been a smoker. She drinks alcohol occasionally and she is currently unemployed. REVIEW OF SYSTEMS: Constitutional: No fevers or chills. She does feel easily fatigued and has gained 10 pounds since March 2018. Endocrine: As described in history of present illness. Hematologic: No easy bruising or bleeding. No history of blood transfusions. Respiratory: No dyspnea on exertion. No chronic cough. No recent upper respiratory infections. She does have exercise- induced asthma. Cardiovascular: No anginal chest pain or palpitations. Gastrointestinal: No current nausea or vomiting. No diarrhea, GI bleeding, or chronic constipation. No change in bowel habits. She does have occasional acid reflux and is on a gluten- free diet, which she states is helpful and she takes occasional Tums. Genitourinary: As described in history of present illness. No current dysuria or urinary tract infection. Musculoskeletal: Bone pain in legs , feet and toes. Integumentary: No chronic rashes or skin changes. Neurologic : No headache or blurred vision. She states that when she was in severe pain with kidney stone that she had a vagal episode. General: No previous anesthesia complications. No history of deep vein thrombosis or pulmonary embolism. PHYSICAL EXAMINATION GENERAL SURVEY: The patient is a 52-year-old female, well developed, well nourished, in no acute distress. VITAL SIGNS: Height 60 inches, weight 135 pounds, body mass index 26.4. Blood pressure 108/78, pulse 84 and regular, respiratory rate 16, temperature 97.6 tympanic. HEENT: Benign. NECK: Supple. Trachea midline. No obvious thyromegaly. No palpable nodules. No cervical lymphadenopathy. No supraclavicular lymphadenopathy. LUNGS: Breath sounds bilaterally clear and equal. HEART: Regular rate and rhythm. No murmurs or rubs appreciated. ABDOMEN: Active bowel sounds. Soft, nondistended, nontender throughout. No obvious masses, organomegaly, or evidence of ventral hernia. PELVIC: Exam up-to-date, not repeated. RECTAL: Exam up-to-date, not repeated. EXTREMITIES: Warm without edema or skin ulceration. NEUROLOGIC: Alert and oriented x3. Steady gait. SKIN: Warm, dry, intact. IMPRESSION: Primary hyperparathyroidism. PLAN: Same-day surgery admission to Dr. Wiggins's service on 07/21/18, for parathyroidectomy. USMAN REBOLLEDO NP [id number]/[facility] #: [id number] SERENA
[~2018-07-21 05:41] MED LIST changes: -Sodium Citrate/Citric Acid* 15 ML UDC PO ONE
[2018-07-21] MEDS ORDERED: ceFAZolin 2 GM PREMIX in ORs 2 GM/50 ML BAG IVPB ONE ×2 (06:01)
[2018-07-21] MEDS ORDERED: Lidocaine 1% INJ* 10 MG/ML 30 ML SDV ONE ×2 (06:49)
[2018-07-21] MEDS ORDERED: Bupivacaine 0.5%* 50 ML VIAL ONE ×2 (06:51)
[2018-07-21] MEDS ORDERED: Midazolam* 1 MG/ML 2 ML VIAL (2 MG) ONE ×2 (07:34)
[2018-07-21] MEDS ORDERED: fentaNYL* 50 MCG/ML 5 ML VIAL (250 MCG VIAL) ONE ×2 (07:34)
[2018-07-21] MEDS ORDERED: Dexamethasone IV* 4 MG/ML 1 ML (4 MG) ONE ×2 (08:07)
[2018-07-21] MEDS ORDERED: Lidocaine 2% PF * 5 ML VIAL ONE ×2 (08:07)
[2018-07-21] MEDS ORDERED: Cisatracurium* 2 MG/ML MDV 5 ML ONE ×2 (08:07)
[2018-07-21] MEDS ORDERED: Ondansetron INJ* 2 MG/ML VIAL ONE ×2 (08:07)
[2018-07-21] MEDS ORDERED: EPHEDrine (Pressors)* 50 MG/ML VIAL ONE ×2 (08:07)
[2018-07-21] MEDS ORDERED: Propofol* 10 MG/ML 20 ML BTL ONE ×2 (08:07)
[2018-07-21] MEDS ORDERED: Succinylcholine* 20 MG/ML 10 ML VIAL ONE ×2 (08:07)
[2018-07-21] MEDS ORDERED: Naloxone* 0.4 MG/ML 1 ML VIAL IV PRN (09:04)
[2018-07-21] MEDS ORDERED: HYDROmorphone INJ1* 1 MG/ML SYRINGE IV PRN (09:04)
[2018-07-21] MEDS ORDERED: fentaNYL* 50 MCG/ML 2 ML VIAL (100 MCG VIAL) IV PRN (09:04)
[2018-07-21] MEDS ORDERED: PROCHLORPERAZINE INJ 5 MG/ML 2 ML VIAL IV PRN (09:04)
[2018-07-21] MEDS ORDERED: Acetaminophen TAB* 325 MG PO PRN (09:04)
[2018-07-21] MEDS ORDERED: Metoclopramide IV* 5 MG/ML 2 ML VIAL IV PRN (09:04)
[2018-07-21] MEDS ORDERED: HYDROmorphone INJ1* 1 MG/ML SYRINGE ONE ×2 (11:48)
[2018-07-21] MEDS ORDERED: Acetaminophen ADULT LIQ* 650 MG/20.3 ML UDC ONE ×2 (11:48)
--- NOTE | 2018-07-21 13:19 | OP ---
CC: Dr. Lozano; Dr. Rice OPERATIVE REPORT: DATE OF OPERATION: 07/21/18. DATE OF : 69. SERVICE: General Surgery. SURGEON: Salud Wiggins MD. PARACHUTE HARNESS RIGGER: Tiny Barros MD. ANESTHESIOLOGIST: Dr. Shira Catalan. ANESTHESIA: General endotracheal anesthesia. PRE-OP DIAGNOSIS: Primary hyperparathyroidism. POST-OP DIAGNOSIS: Primary hyperparathyroidism. OPERATIVE PROCEDURE: Left upper parathyroidectomy. ESTIMATED BLOOD LOSS: Minimal. SPECIMEN: Left upper parathyroid and left upper nodule. INDICATIONS FOR SURGERY: Ms. Martinez is a very pleasant 52-year-old female with a history of kidney stones who was found during workup to also have primary hyperparathyroidism. Given her age and history of kidney stones, she met criteria for undergoing a parathyroidectomy. She underwent a workup to localize parathyroid adenomas and on both ultrasound and Sestamibi SPECT she was found to have left upper parathyroid adenoma. Given these findings, informed consent was obtained for a parathyroidectomy. She understood the risks , benefits and alternatives of the procedure and she wished to proceed. DESCRIPTION OF PROCEDURE: The patient was brought back to the operating room and placed on the operating table in the supine position. Venodyne boots were placed in the bilateral lower extremities for DVT prophylaxis. Antibiotics with Ancef was administered prior to incision. The patient underwent general endotracheal anesthesia and her neck was positioned in an extended position. A time-out was performed prior to administering local anesthesia. After this, local anesthesia comprising of 1% lidocaine and 0.25% Marcaine was administered to the mid neck where the incision was to be made. Approximately 25 cc was administered. After this, the neck was prepped and draped in normal sterile fashion and then a second time-out was performed to verify the patient's name, MR number, and the procedure to be performed. A transverse incision was made in the neck in a natural crease line approximately 3 fingerbreadths above the sternal notch. The skin was divided down to the subcutaneous tissue. The platysma was then divided and then the inferior and superior subplatysmal flaps were developed. Next, the median raphe between the strap muscles was identified and divided. The strap muscles were off the left lobe of the thyroid. Attention was turned towards the left side, given that the left upper parathyroid was localized as an enlarged adenoma. The strap muscles were retracted laterally and there appeared to be many adhesions of the strap muscles to the thyroid. This may be because she previously had had an FNA biopsy, but once the strap muscles were retracted off the left thyroid lobe and a lateral space was developed, the left lobe of the thyroid was lifted up and out of the neck and retracted with a peanut. Once this was done, the left upper parathyroid adenoma was clearly visualized and it was dissected out of its surrounding areolar tissue. There is also a nodule that appeared to be very close to the parathyroid. It was uncertain whether or not this was a piece of normal parathyroid or if it was actually a small thyroid nodule. Once the abnormal enlarged left upper parathyroid was isolated, the vascular pedicle was taken using a LigaSure and time 0 blood was drawn for parathyroid hormone monitoring. Of note, the baseline was withdrawn when the patient was in the preop area. The left upper parathyroid was clearly enlarged and and was cut open to confirm it was an adenoma. The left upper nodule that was nearby it was also removed and taken off as specimen. Subsequently, the T5 and T10 times were drawn and and sent to the laboratory. The results were as follows: Baseline was 10.8, at time 0 was 18.9, time 5 was 7.2, and time 10 was 5.5. Given this, the patient's met the [place] criterion for the appropriate drop in PTH levels. Next, attention was turned towards the neck. Hemostasis was obtained and Tisseel was placed into cavity. After this, careful hemostasis was again obtained, looking at the strap muscles to ensure that there is no bleeding there and the strap muscles were then reapproximated using interrupted 3-0 Vicryl sutures. Next, the platysma was closed interrupted 3-0 Vicryl sutures after obtaining hemostasis and then the incision was closed using running 4-0 Prolene suture. A sterile dressing was then placed and the patient's anesthesia was reversed. She was woken up and she was taken to the PACU in stable condition. At the end of the case, all counts were correct and I was present during the entirety of the case. [id number]/[facility] #: [id number] [facility]ERN[facility]
[2018-07-21 14:32] VITALS: BP 122/59
== END 2018-07-21 14:32 | disposition home or self-care (01) ==
LOC: OR 05:41
PROVIDERS: ATTEND Surgery
DX: E05.90 Thyrotoxicosis, unspecified without thyrotoxic crisis or storm (principal); D35.1 Benign neoplasm of parathyroid gland; J45.990 Exercise induced bronchospasm; F41.9 Anxiety disorder, unspecified
CPT/HCPCS: 36415; 81025; 83970; 88305; A9270-GY; C1776; J0330; J0690; J1100; J1170; J2250; J2405; J2704; J3010